=== PATIENT | male | born 2000 | race Caucasian/White ===

== ENCOUNTER 2022-12-14 13:16 | Emergency (ER) | payer BC, MEDICAID, SELFPAY ==
[2022-12-14 13:25] VITALS: BP 138/67; PULSE 69; RESP 16; TEMP 36.3; O2SAT 100
--- NOTE | 2022-12-14 13:36 | ED.BACK ---
HPI - Back Pain/Injury General Chief Complaint: Back Pain/Injury Stated Complaint: Back Injury History of Present Illness HPI Narrative: Patient presents with left lower back pain. Patient states a box fell off of the dresser and hit him in his left lower back causing some muscle aches and pains. Patient states the pain has since been relieved with Epson salt soaks and ibuprofen. Patient presents today requesting a work note. Patient works at [employer] and states he needs a note stating he can go back to work. Related Data Home Medications Medication Instructions Recorded Confirmed No Home Medications 12/14/22 12/14/22 Allergies Allergy/AdvReac Type Severity Reaction Status Date / Time No Known Allergies Allergy Verified 12/14/22 13:32 Review of Systems Review of Systems: CONSTITUTIONAL: Denies fever, chills, or sweats. EYES: Denies visual changes, redness, or discharge. ENT: Denies rhinorrhea, congestion, sore throat, or otalgia. CARDIOVASCULAR: Denies chest pain, palpitations, or edema. RESPIRATORY: Denies cough or dyspnea. GASTROINTESTINAL: Denies abdominal pain, nausea, vomiting, or diarrhea. GENITOURINARY: Denies dysuria or hematuria. SKIN: Denies rash or itching. MUSCULOSKELETAL: Denies back pain, joint pain, or myalgia. NEUROLOGIC: Denies headache, numbness, or weakness. PSYCHIATRIC: Denies anxiety or depression. PMFSH Comments At time of signature, agree with nursing past medical, surgical, social and family history. There is no relevant family history pertinent to the presenting complaint Exam Narrative: GENERAL: Well-appearing, well-nourished, and in no acute distress. HEAD: Normocephalic, atraumatic. EYES: PERRLA and EOMI. ENT: Nares clear, no rhinorrhea or epistaxis. Mucous membranes moist. NECK: Supple. CHEST: Clear to auscultation. No respiratory distress. HEART: Regular rate and rhythm. No murmur heard. Normal peripheral pulses. ABDOMEN: Soft, nontender, nondistended, normal active bowel sounds. EXTREMITIES: Normal range of motion. No edema. SPINE MIDLINE. NO CURVATURE APPARENT. NO VERTEBRAL POINT SPECIFIC TENDERNESS. NO DEFORMITY. NO STEP-OFFS. NORMAL LE STRENGTH BILATERALLY. NORMAL LE SENSATION BILATERALLY. ABLE TO WALK ON TOES AND HEELS WITH NORMAL DORSIFLEXION AND PLANTAR FLEXION STRENGTH. NO WEAKNESS OBSERVED WITH GAIT. LEFT PARASPINAL MUSCLE TENDERNESS FLEXION STRENGTH. NO WEAKNESS OBSERVED WITH GAIT. LEFT PARASPINAL MUSCLE TENDERNESS. NO LEFT SI JOINT TENDERNESS. FLEXION AND EXTENSION ROM NORMAL, ONLY SLIGHT LIMITATION.TENDERNESS TO LEFT MULE AREA LOWER BACK SKIN: Warm, dry, no rash. NEURO: No focal deficits. Alert and oriented x3. Mckenna Coma Scale Eye Opening: Spontaneous 4 [place] Coma Scale Motor: Obeys Commands 6 [place] Coma Scale Verbal: Oriented 5 [place] Coma Scale Total 15 Course Course Level of Care: Express Care Visit Vital Signs Vital signs: Vital Signs Temperature 36.3 C L 12/14/22 13:25 Pulse Rate 69 12/14/22 13:25 Respiratory Rate 16 12/14/22 13:25 Blood Pressure 138/67 12/14/22 13:25 Pulse Oximetry 100 12/14/22 13:25 Oxygen Delivery Room Air 12/14/22 13:25 Temperature 36.3 C L 12/14/22 13:25 Pulse Rate 69 12/14/22 13:25 Respiratory Rate 16 12/14/22 13:25 Blood Pressure 138/67 12/14/22 13:25 Pulse Oximetry 100 12/14/22 13:25 Oxygen Delivery Room Air 12/14/22 13:25 PLEASE POLO SCHEDULE A FOLLOWUP VISIT WITH YOUR PERSONAL PHYSICIAN FOR FURTHER EVALUATION AND TREATMENT. INCLUDING RECHECK AND DISCUSSION OF YOUR BLOOD PRESSURE. IF YOUR SYMPTOMS PERSIST, CHANGE OR WORSEN SIGNIFICANTLY BEFORE YOU CAN CONTACT YOUR PERSONAL PHYSICIAN THEN PLEASE, WITHOUT DELAY, GO TO THE EMERGENCY DEPARTMENT FOR FURTHER EVALUATION DISCUSSED WITH PATIENT DOING AN LS SPINE X-RAY TODAY PATIENT DECLINED X-RAY STATES THAT HE JUST NEEDS A NOTE FOR WORK. Discharge Plan Discharge Clinical Impression: Strain of lumbar region Adia
== END 2022-12-14 13:42 | disposition home or self-care (01) ==
PROVIDERS: Emergency Provider Nurse Practitioner Family
DX: S39.012A Strain of muscle, fascia and tendon of lower back, initial encounter (principal); T14.90XA Injury, unspecified, initial encounter
CPT/HCPCS: 99212; G0463